=== PATIENT | female | born 1985 | race Two or more races ===

== ENCOUNTER 2022-04-20 00:20 | Emergency (ER) | payer OTHER ==
[~2022-04-20] VITALS: Ht 165.1 cm; Wt 70.3 kg
--- NOTE | 2022-04-20 00:35 | NUR ---
Patient walked into ER c/o non radiating intermittent CP describing pain as 7/10 mathew pain that started 6hrs ago. Patient came in now for worsening pain.
--- NOTE | 2022-04-20 00:43 | NUR ---
Dr. Alonso on bedside for MSE.
[2022-04-20] MEDS ORDERED: OXYC-128 PO (00:57)
[2022-04-20 01:02] VITALS: BP 125/74
--- NOTE | 2022-04-20 01:02 | NUR ---
Patient discharged to home in stable condition. Written and verbal after care instructions given. Patient verbalizes understanding of instructions. Stressed follow up or return to ER for worsening s/s. Patient ambulated fr the ER with steady gait. All belongings with patient.
== END 2022-04-20 01:02 | disposition home or self-care (01) ==
LOC: ER 00:28
DX: M94.0 Chondrocostal junction syndrome [Tietze] (principal)
CPT/HCPCS: 93005; A4663